=== PATIENT | female | born 1950 | race African-American/Black ===

== ENCOUNTER 2022-04-21 16:09 | Emergency (ER) | payer MEDICARE, MEDICAID ==
[~2022-04-21] VITALS: Ht 165.1 cm; Wt 60.0 kg
[2022-04-21 20:00] VITALS: BP 132/65
== END 2022-04-21 21:51 | disposition home or self-care (01) ==
LOC: EDBD 16:09 → ER 16:09
DX: F10.129 Alcohol abuse with intoxication, unspecified (principal); Y90.0 Blood alcohol level of less than 20 mg/100 ml; Z87.891 Personal history of nicotine dependence; Z59.00 Homelessness unspecified
CPT/HCPCS: 71045; 99284

== ENCOUNTER 2022-05-21 10:13 | Emergency (ER) | payer MEDICARE, MEDICAID ==
[~2022-05-21] VITALS: Ht 162.6 cm; Wt 75.0 kg
[2022-05-21 10:27] VITALS: BP 185/159
== END 2022-05-21 13:29 | disposition left against medical advice (07) ==
LOC: ER 11:47
DX: R21 Rash and other nonspecific skin eruption (principal); I10 Essential (primary) hypertension
CPT/HCPCS: 73130; 99283